=== PATIENT | male | born 1995 | race Caucasian/White ===

== ENCOUNTER → 2016-10-30 | Outpatient (CLI) | payer MEDICAID ==
[2016-10-30 11:17] LABS: ALBUMIN/GLOBULIN RATIO 1.29 (1.00-1.93); ALKALINE PHOSPHATASE 66 U/L (45-117); ALT/SGPT 31 U/L (12-78); ANION GAP 5 MEQ/L (8-16); AST/SGOT 16 U/L (15-37); BILIRUBIN,TOTAL 1.2 MG/DL (0.2-1.0); BLOOD UREA NITROGEN 14 MG/DL (7-18); CARBON DIOXIDE LEVEL 29 MEQ/L (21-32); CHLORIDE LEVEL 103 MEQ/L (98-107); CHOLESTEROL LEVEL 158 MG/DL (<200); CREATININE FOR GFR 1.01 MG/DL (0.70-1.30); GLOMERULAR FILTRATION RATE > 60.0 (>60); GLUCOSE, FASTING 91 MG/DL (70-105); POTASSIUM SERUM 4.1 MEQ/L (3.5-5.1); SODIUM LEVEL 137 MEQ/L (136-145); TOTAL PROTEIN 7.1 GM/DL (6.4-8.2); TRIGLYCERIDES LEVEL 125 MG/DL (<150)
== END ==
LOC: M LAB 08:40
PROVIDERS: ATTEND Family Medicine Addiction Medicine
DX: Z00.01 Encounter for general adult medical examination with abnormal findings (principal)

== ENCOUNTER → 2020-03-31 | Outpatient (REF) | payer MEDICAID ==
[2020-03-31 13:44] LABS: ALBUMIN 4.2 GM/DL (3.2-5.2); ALT/SGPT 36 U/L (12-78); BILIRUBIN,TOTAL 0.9 MG/DL (0.2-1.0); BLOOD UREA NITROGEN 12 MG/DL (7-18); CALCIUM LEVEL 9.6 MG/DL (8.5-10.1); CARBON DIOXIDE LEVEL 29 MEQ/L (21-32); CHLORIDE LEVEL 104 MEQ/L (98-107); CHOLESTEROL LEVEL 157 MG/DL (<200); CHOLESTEROL RISK RATIO 3.078 (<5); CREATININE FOR GFR 1.13 MG/DL (0.70-1.30); GLOMERULAR FILTRATION RATE > 60.0 (>60); GLUCOSE, FASTING 81 MG/DL (70-100); HDL CHOLESTEROL 51 MG/DL (>40); LDL CHOLESTEROL 88 MG/DL (<100); NON-HDL-C 106 MG/DL; POTASSIUM SERUM 4.2 MEQ/L (3.5-5.1); SODIUM LEVEL 139 MEQ/L (136-145); TOTAL PROTEIN 7.6 GM/DL (6.4-8.2); TRIGLYCERIDES LEVEL 91 MG/DL (<150)
== END ==
LOC: M LAB REF 12:26
PROVIDERS: ATTEND Family Medicine Addiction Medicine
DX: Z00.01 Encounter for general adult medical examination with abnormal findings (principal)

== ENCOUNTER → 2021-08-14 | Outpatient (CLI) | payer MEDICAID | LOC: M RAD 11:27 | PROVIDERS: ATTEND Internal Medicine | DX: D75.1 Secondary polycythemia (principal) ==

== ENCOUNTER → 2021-11-26 | Outpatient (CLI) | payer MEDICAID | LOC: M SLEEP 20:00 | PROVIDERS: ATTEND Physician Assistant | DX: R06.83 Snoring (principal) ==

== ENCOUNTER → 2022-02-15 | Outpatient (CLI) | payer MEDICAID ==
[~2022-02-15] MED LIST: HYDR500C3 PO
== END ==
LOC: M RAD 09:26
PROVIDERS: ATTEND Family Medicine Addiction Medicine
DX: R05.9 Cough, unspecified (principal)

== ENCOUNTER 2022-05-05 22:33 | Emergency (ER) | payer MEDICAID ==
[~2022-05-05] VITALS: Ht 177.8 cm; Wt 118.0 kg
[2022-05-06] MEDS ORDERED: AUGMENTIN 875 MG TAB PO ONE (01:10)
[2022-05-06] MEDS ORDERED: NEOSPORIN OINT 0.9 GM PKT TOP ONE (01:10)
[2022-05-06] MEDS ORDERED: BOOSTRIX/ADACEL VACCINE (DIPHTH/PERTUSS/ACELL/TETANUS) 0.5ML SYR IM ONE (01:10)
[2022-05-06] MEDS ORDERED: LIDOCAINE 1% MDV 20ML VIAL SC ONE (01:10)
[2022-05-06] MEDS ORDERED: AMOX400S PO (02:07)
[2022-05-06 02:15] VITALS: BP 129/82
== END 2022-05-06 02:16 | disposition home or self-care (01) ==
LOC: M ED 22:33
DX: S01.81XA Laceration without foreign body of other part of head, initial encounter (principal); W55.03XA Scratched by cat, initial encounter; Y92.009 Unspecified place in unspecified non-institutional (private) residence as the place of occurrence of the external cause; Z23 Encounter for immunization

== ENCOUNTER → 2022-07-12 | Outpatient (CLI) | payer MEDICAID ==
[~2022-07-12] MED LIST changes: +AMOX400S PO
== END ==
LOC: M RAD 06:49
PROVIDERS: ATTEND Nurse Practitioner
DX: D75.1 Secondary polycythemia (principal)

== ENCOUNTER 2022-12-31 12:10 | Emergency (ER) | payer MEDICAID ==
[~2022-12-31] VITALS: Ht 175.3 cm; Wt 112.8 kg
[2022-12-31] MEDS ORDERED: ceFAZolin SOD 2 GM in IV 1 EA IV ONE (15:45)
[2022-12-31] MEDS ORDERED: NS 1,000 ML IV ONE (15:45)
[2022-12-31 16:57] LABS: BASO # 0.1 10^3/uL (0.0-0.2); BASO % 0.6 % (0.0-1.0); EOS % 0.1 % (0.0-3.0); HEMATOCRIT 50.9 % (42.0-52.0); HEMOGLOBIN 17.7 g/dl (13.5-17.5); LYMPH # 1.4 10^3/uL (1.5-5.0); LYMPH % 10.9 % (24.0-44.0); MEAN CORPUSCULAR HEMOGLOBIN 30.6 pg (27.0-33.0); MEAN CORPUSCULAR HGB CONC 34.8 g/dl (32.0-36.5); MEAN CORPUSCULAR VOLUME 88.1 fl (80.0-96.0); MONO # 1.1 10^3/uL (0.0-0.8); NEUTROPHILS # 9.8 10^3/uL (1.5-8.5); NEUTROPHILS % 78.9 % (36.0-66.0); PLATELET COUNT, AUTOMATED 259 10^3/uL (150-450); RED BLOOD COUNT 5.78 10^6/uL (4.30-6.10); WHITE BLOOD COUNT 12.4 10^3/uL (4.0-10.0)
[2022-12-31 17:12] LABS: ERYTHROCYTE SEDIMENTATION RATE 37 mm/hr (0-15)
[2022-12-31 17:19] LABS: ALBUMIN 3.8 G/DL (3.2-5.2); ALKALINE PHOSPHATASE 69 U/L (46-116); ALT/SGPT 27 U/L (7.0-40); AST/SGOT 42 U/L (<34); BILIRUBIN,DIRECT 0.6 MG/DL (<0.4); BILIRUBIN,TOTAL 2.1 MG/DL (0.3-1.2); BLOOD UREA NITROGEN 16 MG/DL (9-23); CALCIUM LEVEL 9.2 MG/DL (8.5-10.1); CARBON DIOXIDE LEVEL 27 MMOL/L (20-31); CHLORIDE LEVEL 102 MMOL/L (98-107); CREATININE FOR GFR 0.98 MG/DL (0.70-1.30); GLOMERULAR FILTRATION RATE > 60.0 (>60); GLUCOSE, FASTING 93 MG/DL (60-100); POTASSIUM SERUM 4.9 MMOL/L (3.5-5.1); SODIUM LEVEL 139 MMOL/L (136-145); TOTAL PROTEIN 7.7 G/DL (5.7-8.2)
[2022-12-31 17:26] VITALS: BP 133/88; TEMP 100.2; O2SAT 99
[2022-12-31] MEDS ORDERED: ACETAMINOPHEN 325 MG TAB PO ONE (17:30)
[2022-12-31] MEDS ORDERED: ACETAMINOPHEN 325MG/10.15ML UDC PO ONE ×2 (17:55)
[2022-12-31] MEDS ORDERED: CEPH25SS PO (18:41)
== END 2022-12-31 18:55 | disposition home or self-care (01) ==
LOC: M ED 12:10
DX: L03.116 Cellulitis of left lower limb (principal); Z79.899 Other long term (current) drug therapy
CPT/HCPCS: 73630; 80048; 80076; 83605; 85025; 85652; 86140; 87040; 96361; 96365; 99284; J0690

== ENCOUNTER → 2023-04-04 | Outpatient (REF) | payer MEDICAID ==
[~2023-04-04] MED LIST changes: +CEPH25SS PO
[2023-04-04 13:00] LABS: CHOLESTEROL RISK RATIO 3.87 (<5); HDL CHOLESTEROL 44.1 MG/DL (>40); LDL CHOLESTEROL 100.5 MG/DL (<100); NON-HDL-C 126.9 MG/DL
[2023-04-04 13:02] LABS: THYROID STIMULATING HORMONE 2.871 uIU/ML (0.55-4.78)
== END ==
LOC: M LAB REF 11:54
PROVIDERS: ATTEND Family Medicine Addiction Medicine
DX: E66.9 Obesity, unspecified (principal); Z68.36 Body mass index [BMI] 36.0-36.9, adult

== ENCOUNTER → 2024-04-02 | Outpatient (REF) | payer MEDICAID ==
[2024-04-02 14:30] LABS: ALBUMIN 3.7 G/DL (3.2-5.2); ALKALINE PHOSPHATASE 69 U/L (40-129); ALT/SGPT 23 U/L (7.0-40); AST/SGOT 13 U/L (<34); BILIRUBIN,TOTAL 1.1 MG/DL (0.3-1.2); BLOOD UREA NITROGEN 15 MG/DL (9-23); CALCIUM LEVEL 9.5 MG/DL (8.5-10.1); CARBON DIOXIDE LEVEL 25 MMOL/L (20-31); CHLORIDE LEVEL 108 MMOL/L (98-107); CHOLESTEROL LEVEL 166 MG/DL (<200); CHOLESTEROL RISK RATIO 3.55 (<5); CREATININE FOR GFR 0.86 MG/DL (0.70-1.30); GLOMERULAR FILTRATION RATE > 60.0 (>60); GLUCOSE, FASTING 90 MG/DL (60-100); HDL CHOLESTEROL 46.7 MG/DL (>40); LDL CHOLESTEROL 96.9 MG/DL (<100); NON-HDL-C 119.3 MG/DL; SODIUM LEVEL 140 MMOL/L (136-145); TOTAL PROTEIN 7.3 G/DL (5.7-8.2); TRIGLYCERIDES LEVEL 112 MG/DL (<150)
[2024-04-02 14:32] LABS: THYROID STIMULATING HORMONE 2.598 uIU/ML (0.55-4.78)
[2024-04-02 14:35] LABS: HEMOGLOBIN A1c 4.8 % (4.0-6.0)
== END ==
LOC: M LAB REF 08:23
PROVIDERS: ATTEND Family Medicine Addiction Medicine
DX: R73.9 Hyperglycemia, unspecified (principal)

== ENCOUNTER → 2024-09-08 | Outpatient (REF) | payer MEDICAID ==
[2024-09-08 13:53] LABS: BLOOD UREA NITROGEN 16 MG/DL (9-23); CALCIUM LEVEL 9.5 MG/DL (8.5-10.1); CARBON DIOXIDE LEVEL 31 MMOL/L (20-31); CHLORIDE LEVEL 100 MMOL/L (98-107); CREATININE FOR GFR 0.97 MG/DL (0.70-1.30); GLOMERULAR FILTRATION RATE > 90.0 (>60); GLUCOSE, FASTING 100 MG/DL (60-100); POTASSIUM SERUM 3.6 MMOL/L (3.5-5.1); SODIUM LEVEL 138 MMOL/L (136-145)
== END ==
LOC: M LAB REF 13:12
PROVIDERS: ATTEND Family Medicine Addiction Medicine
DX: I10 Essential (primary) hypertension (principal)

== ENCOUNTER → 2025-02-24 | Outpatient (REF) | payer MEDICAID ==
[~2025-02-24] MED LIST changes: +LISI10TA24 PO
== END ==
LOC: M LAB REF 20:32
PROVIDERS: ATTEND Physician Assistant
DX: B34.9 Viral infection, unspecified (principal)